=== PATIENT | female | born 1965 | race Caucasian/White ===

== ENCOUNTER → 2017-07-20 | Outpatient (CLI) | payer OTHER ==
--- NOTE | 2017-07-20 13:28 | Diagnostic Imaging Report ---
Bilateral screening mammogram 2D views with tomosynthesis The current study was also evaluated with a Computer Aided Detection (CAD) system. Indication: Screening. No current complaints stated on the questionnaire. COMPARISON: 07/01/16. Findings: The breasts are composed of dense parenchyma which may decrease mammographic sensitivity. In the lateral aspect of the right breast, a cyst is again seen, slightly smaller compared to prior exams. Occasional punctate calcifications are noted. Allowing for technique and positional differences, no suspicious change is seen. IMPRESSION: Dense breasts with no definite change. ACR BI-RADS Category 2: Benign findings. Result letter will be mailed to the patient. Note: At least 10% of breast cancer is not imaged by mammography. Dictated by: Dictated on workstation # [id number]
== END ==
LOC: RAD 07:27
PROVIDERS: ATTEND Nurse Practitioner
DX: Z12.31 Encounter for screening mammogram for malignant neoplasm of breast (principal)
CPT/HCPCS: 77067

== ENCOUNTER → 2018-07-21 | Outpatient (CLI) | payer OTHER ==
--- NOTE | 2018-07-21 09:08 | Diagnostic Imaging Report ---
INDICATION: Routine screening. Comparison is made with prior mammogram from 07/20/2017 and 07/01/2016. 2-D and 3-D bilateral screening mammography was performed with a Computer Aided Detection (CAD) system. FINDINGS: Both breasts are heterogeneously dense, limiting the sensitivity of mammography. Previously noted cyst in the upper outer right breast appears to be stable to perhaps slightly smaller on today's study. No new mass or malignant appearing microcalcifications are seen. Axillae are unremarkable. IMPRESSION: No mammographic features suspicious for malignancy are identified. ACR BI-RADS Category 2: Benign findings. Result letter will be mailed to the patient. Note: At least 10% of breast cancer is not imaged by mammography. Dictated by: Dictated on workstation # [id number]
== END ==
LOC: RAD 07:41
PROVIDERS: ATTEND Nurse Practitioner
DX: Z12.31 Encounter for screening mammogram for malignant neoplasm of breast (principal)
CPT/HCPCS: 77067

== ENCOUNTER → 2019-08-24 | Outpatient (CLI) | payer OTHER ==
[2019-08-24 07:56] LABS: BILIRUBIN,TOTAL 0.4 MG/DL (0.1-1.0); CALCIUM 9.2 MG/DL (8.5-10.1); CREATININE SERUM 1.08 MG/DL (0.60-1.30); POTASSIUM 3.8 MMOL/L (3.6-5.0); TOTAL PROTEIN 7.1 GM/DL (6.4-8.2)
--- NOTE | 2019-08-24 09:14 | Diagnostic Imaging Report ---
INDICATION: Routine screening. COMPARISON: 07/21/2018 and 07/20/2017. TECHNIQUE: 2D and 3D bilateral screening mammography was performed with CAD. FINDINGS: Both breasts remain heterogeneously dense, limiting the sensitivity of mammography. The overall parenchymal pattern appears to be stable. A circumscribed lesion in the upper outer right breast at mid depth appears stable. No new mass or malignant appearing microcalcifications are seen. The axillae are unremarkable. IMPRESSION: No mammographic features suspicious for malignancy are identified. ACR BI-RADS Category 2: Benign findings. Result letter will be mailed to the patient. Note: At least 10% of breast cancer is not imaged by mammography. Dictated by: Dictated on workstation # [id number]
== END ==
LOC: RAD 07:29
PROVIDERS: ATTEND Obstetrics & Gynecology
DX: Z12.31 Encounter for screening mammogram for malignant neoplasm of breast (principal); Z86.39 Personal history of other endocrine, nutritional and metabolic disease
CPT/HCPCS: 36415; 77067; 80053; 80061

== ENCOUNTER → 2020-08-28 | Outpatient (CLI) | payer OTHER ==
[2020-08-28 07:48] LABS: HEMOGLOBIN 14.5 g/dL (11.5-16.0); MEAN PLATELET VOLUME 9.6 fL (9.0-12.2); WHITE BLOOD COUNT 7.1 10^3/uL (4.3-11.0)
[2020-08-28 08:11] LABS: ALANINE AMINOTRANSFERASE 9 U/L (0-55); ALBUMIN 4.1 GM/DL (3.2-4.5); ALKALINE PHOSPHATASE 78 U/L (40-136); BILIRUBIN,TOTAL 0.4 MG/DL (0.1-1.0); BUN/CREATININE RATIO 12; CARBON DIOXIDE 23 MMOL/L (21-32); CHLORIDE 106 MMOL/L (98-107); CHOLESTEROL 213 MG/DL (< 200); CREATININE SERUM 0.95 MG/DL (0.60-1.30); GFR ESTIMATED > 60; GLUCOSE 91 MG/DL (70-105); HDL CHOLESTEROL 69 MG/DL (40-60); POTASSIUM 3.5 MMOL/L (3.6-5.0); SODIUM 141 MMOL/L (135-145); TOTAL PROTEIN 7.4 GM/DL (6.4-8.2); TRIGLYCERIDES 281 MG/DL (<150); VLDL CHOLESTEROL 56 MG/DL (5-40)
--- NOTE | 2020-08-28 13:48 | Diagnostic Imaging Report ---
INDICATION: Routine screening. Comparison is made with prior mammogram from 08/24/2019 and 07/21/2018. 2-D and 3-D bilateral screening mammography was performed with CAD. Both breasts remain heterogenously dense, limiting the sensitivity of mammography. Circumscribed densities previously seen upper outer right breast appear stable. No spiculated mass or malignant appearing microcalcifications are seen. Axillae are unremarkable. IMPRESSION: BI-RADS Category 2 No mammographic features suspicious for malignancy are identified. ACR BI-RADS Category 2: Benign findings. Result letter will be mailed to the patient. Note: At least 10% of breast cancer is not imaged by mammography. Dictated by: Dictated on workstation # [id number]
== END ==
LOC: RAD 07:30
PROVIDERS: ATTEND Obstetrics & Gynecology
DX: Z00.00 Encounter for general adult medical examination without abnormal findings (principal); Z12.31 Encounter for screening mammogram for malignant neoplasm of breast
CPT/HCPCS: 36415; 77063; 77067; 80053; 80061; 83036; 84443; 85027

== ENCOUNTER → 2021-10-24 | Outpatient (CLI) | payer OTHER ==
[2021-10-24 07:52] LABS: HEMATOCRIT 45 % (35-52); HEMOGLOBIN 14.7 g/dL (11.5-16.0); MEAN CORPUSCULAR HEMOGLOBIN 30 pg (25-34); MEAN CORPUSCULAR HGB CONC 33 g/dL (32-36); MEAN CORPUSCULAR VOLUME 92 fL (80-99); MEAN PLATELET VOLUME 9.3 fL (9.0-12.2); PLATELET COUNT 276 10^3/uL (130-400); WHITE BLOOD COUNT 6.1 10^3/uL (4.3-11.0)
[2021-10-24 08:13] LABS: BILIRUBIN,TOTAL 0.4 MG/DL (0.1-1.0); CREATININE SERUM 0.88 MG/DL (0.60-1.30); POTASSIUM 3.8 MMOL/L (3.6-5.0); TOTAL PROTEIN 7.3 GM/DL (6.4-8.2)
--- NOTE | 2021-10-24 10:17 | Diagnostic Imaging Report ---
INDICATION: Routine screening. COMPARISON: 08/28/2020 and 08/24/2019. TECHNIQUE: 2D and 3D bilateral screening mammography was performed with CAD. FINDINGS: Both breasts are heterogeneously dense, limiting the sensitivity of mammography. There are circumscribed densities in the upper outer right breast, suggestive of cysts. No spiculated mass or malignant-appearing microcalcifications are seen. The axillae are unremarkable. IMPRESSION: No mammographic features suspicious for malignancy are identified. ACR BI-RADS Category 2: Benign findings. Result letter will be mailed to the patient. Note: At least 10% of breast cancer is not imaged by mammography. Dictated by: Dictated on workstation # [id number]
== END ==
LOC: RAD 07:41
PROVIDERS: ATTEND Obstetrics & Gynecology
DX: Z12.31 Encounter for screening mammogram for malignant neoplasm of breast (principal)
CPT/HCPCS: 36415; 77063; 77067; 80053; 80061; 85027

== ENCOUNTER → 2022-11-03 | Outpatient (CLI) | payer BC ==
--- NOTE | 2022-11-03 10:21 | Diagnostic Imaging Report ---
EXAMINATION: 3D bilateral screening mammogram with CAD. INDICATION: Screening. COMPARISON: This study was compared to the prior exams of 10/24/2021, 08/28/2020, and 08/24/2019. PERSONAL HISTORY: At this time, there are no current complaints. FINDINGS: The fibroglandular tissue in both breasts is heterogeneously dense. This does limit the sensitivity of this exam. When compared to the prior study, there does not appear to have been any significant change. The well-circumscribed small round asymmetries in the upper outer aspect of the right breast seen previously are again visualized and no different. I suspect that these are benign cysts or solid masses. There is no primary or secondary sign of malignancy noted. IMPRESSION: There is no evidence for malignancy. ACR BI-RADS Category 1: Negative. Result letter will be mailed to the patient. Note: At least 10% of breast cancer is not imaged by mammography. Dictated by: Dictated on workstation # [id number]
== END ==
LOC: RAD 07:30
PROVIDERS: ATTEND Nurse Practitioner Women's Health
DX: Z12.31 Encounter for screening mammogram for malignant neoplasm of breast (principal)
CPT/HCPCS: 77063; 77067

== ENCOUNTER 2023-04-15 19:23 | Emergency (ER) | payer BC ==
[~2023-04-15] VITALS: Ht 160 cm; Wt 57.2 kg
[2023-04-15] MEDS ORDERED: NITROGLYCERIN 2% OINT 1 GM UNIT DOSE PACKET TOP STA (19:47)
[2023-04-15 19:48] LABS: BASOPHILS # (AUTO) 0.1 10^3/uL (0.0-0.1); BASOPHILS % (AUTO) 1 % (0-10); EOSINOPHILS # (AUTO) 0.1 10^3/uL (0.0-0.3); EOSINOPHILS % (AUTO) 3 % (0-10); HEMATOCRIT 44 % (35-52); HEMOGLOBIN 14.7 g/dL (11.5-16.0); LYMPHOCYTES # (AUTO) 1.9 10^3/uL (1.0-4.0); LYMPHOCYTES % (AUTO) 34 % (12-44); MEAN CORPUSCULAR HEMOGLOBIN 31 pg (25-34); MEAN CORPUSCULAR HGB CONC 33 g/dL (32-36); MEAN CORPUSCULAR VOLUME 93 fL (80-99); MEAN PLATELET VOLUME 9.2 fL (9.0-12.2); MONOCYTES # (AUTO) 0.6 10^3/uL (0.0-1.0); MONOCYTES % (AUTO) 11 % (0-12); NEUTROPHILS # (AUTO) 2.8 10^3/uL (1.8-7.8); NEUTROPHILS % (AUTO) 51 % (42-75); PLATELET COUNT 314 10^3/uL (130-400); WHITE BLOOD COUNT 5.5 10^3/uL (4.3-11.0)
[2023-04-15] MEDS ORDERED: ASPIRIN 81 MG CHEWABLE TABLET PO ONE (20:00)
[2023-04-15 20:06] LABS: INR 0.9 (0.8-1.4); PROTHROMBIN TIME PATIENT 12.8 SEC (12.2-14.7)
[2023-04-15 20:07] LABS: ALANINE AMINOTRANSFERASE 20 U/L (0-55); ALBUMIN 4.4 GM/DL (3.2-4.5); ALKALINE PHOSPHATASE 73 U/L (40-136); AMYLASE 75 U/L (25-125); BILIRUBIN,TOTAL 0.5 MG/DL (0.1-1.0); BUN/CREATININE RATIO 14; CALCIUM 9.6 MG/DL (8.5-10.1); CARBON DIOXIDE 24 MMOL/L (21-32); CHLORIDE 101 MMOL/L (98-107); CREATINE KINASE 55 U/L (29-168); CREATININE SERUM 0.96 MG/DL (0.60-1.30); GFR ESTIMATED 70; GLUCOSE 90 MG/DL (70-105); LIPASE 9 U/L (8-78); MAGNESIUM 2.7 MG/DL (1.6-2.4); PARTIAL THROMBOPLASTIN TIME 27 SEC (24-35); POTASSIUM 3.8 MMOL/L (3.6-5.0); SODIUM 137 MMOL/L (135-145); TOTAL PROTEIN 7.8 GM/DL (6.4-8.2)
--- NOTE | 2023-04-15 20:07 | ED General ---
General Chief Complaint: Abdominal/GI Problems Stated Complaint: ABD PAIN, INDIGESTION Nursing Triage Note: TO ED VIA POV AND AMBULATORY TO ROOM 5 WITH C/O MID ABD PAIN. STATES FEELS "LIKE A BAND AROUND ME". LAST THURSDAY PT STATES SHE FELT LIKE SHE HAD BLOATING AND INDIGESTION. RECENTLY COMPLETED ANTIVIRALS FOR SHINGLES. DENIES N/V. LAST BM THIS AM BUT HAD PREVIOUSLY FELT CONSTIPATED. DENIES FEVER, SOA, COUGH. Source of Information: Patient History of Present Illness Date Seen by Provider: Apr 15, 2023 Time Seen by Provider: 19:40 Initial Comments PT ARRIVES VIA POV FROM HOME STATES SHE HAS BEEN HAVING WHAT SHE CALLS "INDIGESTION"--STATES "IT'S REALLY A PAIN--IT FEELS LIKE MY BRA IS TOO TIGHT"--PAIN BEGAN LAST THURSDAY RATES PAIN 8/10 NOW PAIN IS IN CENTER OF CHEST AND EPIGASTRIC AREA NO RADIATION OF PAIN NOTHING WORSENS OR IMPROVES PAIN NO NAUSEA/VOMITING. HAD NORMAL BM LAST PM--SHE HAS BEEN CONSTIPATED NO COUGH NO SHORTNESS OF BREATH NO FEVER/SWEATS/CHILLS NO SWELLING IN LEGS/FEET OR PAIN IN CALVES NO DIZZINESS OR SYNCOPE NO PALPITATIONS PT WAS DX WITH SHINGLES ABOUT 2 WEEKS AGO--LEFT ABDOMEN AND BACK--SHE WAS SEEN AT AN URGENT CARE IN [place] ABOUT 2 WEEKS AGO. SHE HAS COMPLETED ANTIVIRAL THERAPY THE PAIN SHE IS HAVING NOW IS IN A DIFFERENT AREA THAN THE AREA OF SHINGLES SHE TOOK 1/2 OF A HYDROCODONE AT 1400 TODAY ( PRESCRIBED FOR SHINGLES) --NO RELIEF OF THIS PAIN TODAY NO HISTORY OF SIMILAR NO RECENT ILLNESS PT DENIES ANY MEDICAL PROBLEMS, BUT SHE DOES NOT NORMALLY GO TO A DR AND DOES NOT HAVE A DR. SHE DOES TAKE CONTINUOUS OCP'S, AND DOES NOT HAVE PERIODS DUE TO THAT. PT HAS NEVER HAD SURGERY NO SMOKING, ALCOHOL OR DRUG USE PCP: NONE Allergies and Home Medications Allergies Coded Allergies: Penicillins (Verified Allergy, Unknown, 04/15/23) Sulfa (Sulfonamide Antibiotics) (Verified Allergy, Unknown, 04/15/23) Patient Home Medication List Home Medication List Reviewed: Yes Dicyclomine HCl (Dicyclomine HCl) 20 Mg Tablet, 20 MG PO Q6H Prescribed by: HAYDEE MOHR on 04/15/23 208 Pantoprazole Sodium (Protonix) 40 Mg Tablet.dr, 40 MG PO DAILY Prescribed by: HAYDEE MOHR on 04/15/232150 Review of Systems Review of Systems Constitutional: no symptoms reported EENTM: no symptoms reported Respiratory: no symptoms reported Cardiovascular: see HPI Gastrointestinal: see HPI Genitourinary: no symptoms reported Musculoskeletal: see HPI Skin: see HPI Psychiatric/Neurological: No Symptoms Reported Hematologic/Lymphatic: No Symptoms Reported Immunological/Allergic: no symptoms reported Past Ulecxnv-Ugxlqr-Rtawsy Hx Patient Social History Tobacco Use?: No Substance use?: No Alcohol Use?: No Immunizations Up To Date First/Initial COVID19 Vaccinat: 1 DOSE COVID19 Vaccine Deputy K 9: J&J Past Medical History Surgeries: No Respiratory: No Cardiac: No Neurological: No Reproductive Disorders: No Genitourinary: No Gastrointestinal: No Musculoskeletal: No Endocrine: No HEENT: No Cancer: No Psychosocial: No Integumentary: Yes (SHINGLES) Blood Disorders: No Physical Exam Vital Signs Vital Signs - First Documented 04/15/23 19:33 Pulse 118 Resp 16 B/P (MAP) 149/115 (126) Pulse Ox 97 O2 Delivery Room Air Capillary Refill : Less Than 3 Seconds Height, Weight, BMI Height: '" Weight: lbs. oz. kg; 22.00 BMI Method: General Appearance: No Apparent Distress, WD/WN, Anxious HEENT: PERRL/EOMI Neck: Full Range of Motion, Normal Inspection, Non Tender, Supple; No Carotid Bruit, No JVD Respiratory: Chest Non Tender, Normal Breath Sounds, No Accessory Muscle Use, No Respiratory Distress Cardiovascular: No Edema, No JVD, No Murmur, Normal Peripheral Pulses, Tachycardia Gastrointestinal: Normal Bowel Sounds, No Organomegaly, Non Tender, Soft Back: Normal Inspection Extremity: Normal Capillary Refill, Normal Inspection, Normal Range of Motion, Non Tender, No Calf Tenderness, No Pedal Edema Neurologic/Psychiatric: Alert, Oriented x3, No Motor/Sensory Deficits, 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 Skin: Normal Color, Warm/Dry, Rash (SHINGLES RASH TO LEFT MID ABDOMEN AND BACK--NO VESICLES OR SIGNS OF SECONDARY CELLULITIS) Progress/Results/Core Measures Suspected Sepsis SIRS Temperature: Pulse: 118 Respiratory Rate: 16 Laboratory Tests 04/15/23 19:38: White Blood Count 5.5 Blood Pressure 149 /115 Mean: 126 Laboratory Tests 04/15/23 19:38: Creatinine 0.96, INR Comment 0.9, Platelet Count 314, Total Bilirubin 0.5 Results/Orders Lab Results Laboratory Tests Test 04/15/23 19:38 04/15/23 21:00 Range/Units White Blood Count 5.5 4.3-11.0 10^3/uL Red Blood Count 4.77 3.80-5.11 10^6/uL Hemoglobin 14.7 11.5-16.0 g/dL Hematocrit 44 35-52 % Mean Corpuscular Volume 93 80-99 fL Mean Corpuscular Hemoglobin 31 25-34 pg Mean Corpuscular Hemoglobin Concent 33 32-36 g/dL Red Cell Distribution Width 12.9 10.0-14.5 % Platelet Count 314 130-400 10^3/uL Mean Platelet Volume 9.2 9.0-12.2 fL Immature Granulocyte % (Auto) 0 % Neutrophils (%) (Auto) 51 42-75 % Lymphocytes (%) (Auto) 34 12-44 % Monocytes (%) (Auto) 11 0-12 % Eosinophils (%) (Auto) 3 0-10 % Basophils (%) (Auto) 1 0-10 % Neutrophils # (Auto) 2.8 1.8-7.8 10^3/uL Lymphocytes # (Auto) 1.9 1.0-4.0 10^3/uL Monocytes # (Auto) 0.6 0.0-1.0 10^3/uL Eosinophils # (Auto) 0.1 0.0-0.3 10^3/uL Basophils # (Auto) 0.1 0.0-0.1 10^3/uL Immature Granulocyte # (Auto) 0.0 0.0-0.1 10^3/uL Erythrocyte Sedimentation Rate 17 0-30 MM/HR Prothrombin Time 12.8 12.2-14.7 SEC INR Comment 0.9 0.8-1.4 Activated Partial Thromboplast Time 27 24-35 SEC D-Dimer < 0.27 0.00-0.49 UG/ML Sodium Level 137 135-145 MMOL/L Potassium Level 3.8 3.6-5.0 MMOL/L Chloride Level 101 98-107 MMOL/L Carbon Dioxide Level 24 21-32 MMOL/L Anion Gap 12 5-14 MMOL/L Blood Urea Nitrogen 13 7-18 MG/DL Creatinine 0.96 0.60-1.30 MG/DL Estimat Glomerular Filtration Rate 70 BUN/Creatinine Ratio 14 Glucose Level 90 70-105 MG/DL Calcium Level 9.6 8.5-10.1 MG/DL Corrected Calcium 9.3 8.5-10.1 MG/DL Magnesium Level 2.7 H 1.6-2.4 MG/DL Total Bilirubin 0.5 0.1-1.0 MG/DL Aspartate Amino Transf (AST/SGOT) 23 5-34 U/L Alanine Aminotransferase (ALT/SGPT) 20 0-55 U/L Alkaline Phosphatase 73 40-136 U/L Total Creatine Kinase 55 29-168 U/L Creatine Kinase MB 1.4 <6.6 NG/ML Myoglobin 40.4 10.0-92.0 NG/ML Troponin I < 0.028 <0.028 NG/ML C-Reactive Protein High Sensitivity 0.40 0.00-0.50 MG/DL B-Type Natriuretic Peptide 43.2 <100.0 PG/ML Total Protein 7.8 6.4-8.2 GM/DL Albumin 4.4 3.2-4.5 GM/DL Amylase Level 75 25-125 U/L Lipase 9 8-78 U/L TSH [place] Testing 4.24 0.35-4.94 UIU/ML Serum Test, Qualitative NEGATIVE NEGATIVE Urine Color YELLOW Urine Clarity CLEAR Urine pH 6.0 5-9 Urine Specific [place] 1.010 L 1.016-1.022 Urine Protein NEGATIVE NEGATIVE Urine Glucose (UA) NEGATIVE NEGATIVE Urine Ketones TRACE H NEGATIVE Urine Nitrite NEGATIVE NEGATIVE Urine Bilirubin NEGATIVE NEGATIVE Urine Urobilinogen 0.2 < = 1.0 MG/DL Urine Leukocyte Esterase NEGATIVE NEGATIVE Urine RBC (Auto) TRACE H NEGATIVE Urine RBC 2-5 H /HPF Urine WBC RARE /HPF Urine Squamous Epithelial Cells 2-5 /HPF Urine Crystals NONE /LPF Urine Bacteria FEW H /HPF Urine Casts NONE /LPF Urine Mucus NEGATIVE /LPF Urine Culture Indicated YES My Orders Orders - HAYDEE MOHR DO Ed Iv/Invasive Line Start (04/15/23 19:38) Ekg Tracing (04/15/23 19:38) Monitor-Rhythm Ecg Trace Only (04/15/23 19:38) Amylase (04/15/23 19:38) Bnp [place] (04/15/23 19:38) Cbc With Automated Diff (04/15/23 19:38) Comprehensive Metabolic Panel (04/15/23 19:38) Creatine Kinase (04/15/23 19:38) Creatine Kinase Mb (04/15/23 19:38) Hs C Reactive Protein (04/15/23 19:38) Fibrin Degradation Products (04/15/23 19:38) Lipase (04/15/23 19:38) Magnesium (04/15/23 19:38) Protime With Inr (04/15/23 19:38) Partial Thromboplastin Time (04/15/23 19:38) Ua Culture If Indicated (04/15/23 19:38) Erythrocyte Sedimentation Rate (04/15/23 19:38) Myoglobin Serum (04/15/23 19:38) Troponin I [place] (04/15/23 19:38) Hcg,Qualitative Serum (04/15/23 19:47) Thyroid Analyzer (04/15/23 19:47) Chest 1 View, Ap/Pa Only (04/15/23 19:47) Nitroglycerin Ointment (Nitroglycerin (04/15/23 19:47) Aspirin Chewable Tablet (Aspirin Chewabl (04/15/23 20:00) Ct Olga Chest/Noang Abd-Pelv W (04/15/23 20:18) Iohexol Injection (Omnipaque 350 Mg/Ml 1 (04/15/23 20:45) Ns (Ivpb) 100 Ml (Sodium Chloride 0.9% 1 (04/15/23 20:45) Urine Culture (04/15/23 21:00) Pantoprazole Tablet (Pantoprazole Tablet (04/15/23 22:00) Medications Given in ED Current Medications Medications Dose Ordered Sig/Lay Route Start Time Stop Time Status Last Admin Dose Admin Aspirin 324 mg ONCE ONCE PO 04/15/23 20:00 04/15/23 20:01 DC 04/15/23 19:58 324 MG Iohexol 100 ml ONCE ONCE IV 04/15/23 20:45 04/15/23 20:46 DC 04/15/23 20:53 75 ML Pantoprazole Sodium 40 mg ONCE ONCE PO 04/15/23 22:00 04/15/23 22:02 DC 04/15/23 22:03 40 MG Sodium Chloride 100 ml ONCE ONCE IV 04/15/23 20:45 04/15/23 20:46 DC 04/15/23 20:54 67 ML Vital Signs/I&O 04/15/23 04/15/23 19:33 22:06 Pulse 118 103 Resp 16 20 B/P (MAP) 149/115 (126) 147/87 Pulse Ox 97 97 O2 Delivery Room Air Room Air Capillary Refill : Less Than 3 Seconds Blood Pressure Mean: 126 Progress Note : Progress Note VITALS ON ARRIVAL: TEMP , HR 118, RR 16, BP 149/115, O2 SAT 97% ON ROOM AIR GIVEN: -ASPIRIN -NITROPASTE 1" -PROTONIX LABS: -CBC NORMAL -CMP NORMAL -AMYLASE/LIPASE NORMAL -MG 2.7 -TROPONIN NEGATIVE -BNP NORMAL -PT/PTT/INR NORMAL -D-DIMER NEGATIVE -TSH 4.24 -HCG NEGATIVE -UA TRACE RBC, FEW BACTERIA EKG WITH SINUS TACH AND NON-SPECIFIC CHANGES CXR UNREMARKABLE CT CHEST ANGIOGRAM/ABDOMEN-PELVIS DOES NOT SHOW ANY ACUTE PROCESS UNEVENTFUL ER STAY VITALS STABLE, AFEBRILE DISCUSSED TEST RESULTS, ANTICIPATED COURSE, SYMPTOMATIC TREATMENT, MEDICATIONS, NEED FOR FOLLOW UP --WILL REFER TO SURGERY FOR FURTHER EVALUATION, AND RETURN PRECAUTIONS DISCUSSED POSSIBLE NEED FOR FURTHER OUTPATIENT TESTING IF HER SYMPTOMS PERSIST, INCLUDING ULTRASOUND, HIDA SCAN AND ENDOSCOPY ALSO SENT PT HOME WITH LIST OF LOCAL PROVIDERS ECG Initial ECG Impression Date: Apr 15, 2023 Initial ECG Impression Time: 19:45 Initial ECG Rate: 107 Initial ECG Rhythm: S.Tach Initial ECG Intervals MT 123 QRS 92 QT/QTC 316/379 Initial ECG Impression: Nonspecific Changes Initial ECG Comparisson: No Previous ECG Available Comment INTERPRETED BY ME Diagnostic Imaging Comments CXR--PER RADIOLOGIST REPORT AT 2050 FINDINGS: The lungs appear clear without focal airspace opacities or consolidation. There are no findings of an effusion. There is no evidence of a pneumothorax. The lungs are mildly hyperinflated. Heart size and mediastinal contours appear appropriate. Pulmonary vascularity appears within normal limits. There is no acute or suspicious osseous abnormality demonstrated. IMPRESSION: No radiographic evidence of an acute cardiopulmonary process. Mild hyperinflation. CT CHEST ANGIOGRAM / ABDOMEN-PELVIS--PER RADIOLOGIST REPORT AT 2136 FINDINGS: There is no CT angiographic finding of pulmonary embolism or right ventricular strain. The thoracic aorta demonstrates no dissection of the aneurysm or intramural hematoma. There is no significant thoracic aortic atherosclerotic plaquing. Heart size is normal. There is no pericardial collection. The lungs demonstrate no finding of pneumonia or edema. There is no effusion or pneumothorax. There is a 6 mm right lower lobe pulmonary nodule. There are no abnormally enlarged thoracic lymph nodes. The thyroid appears mildly heterogeneous. The liver demonstrates no evidence of a focal intrahepatic abnormality. The gallbladder is nondistended without radiodense stones or finding of biliary dilatation. Hepatic and portal veins are patent. The pancreas is normal. Spleen is unremarkable. There is no adrenal mass. The kidneys enhance normally and are nonobstructed. The stomach is nondistended. There is no small or large bowel dilation to suggest obstruction. There is, however, a large degree of stool present throughout the colon without evidence of colonic thickening or pericolonic fat stranding. The appendix cannot be identified but there are no focal inflammatory changes in the right lower quadrant. The bladder is nondistended. The uterus and ovaries are normal. There is no pelvic free fluid. There is no finding of abdominal or pelvic adenopathy. The aorta is normal in caliber. There is no acute or suspicious osseous abnormality. 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 IMPRESSION: 1. No CT angiographic evidence of pulmonary embolism or right ventricular strain. 2. Normal aorta. 3. No pneumonia or edema. 4. 6 mm right lower lobe pulmonary nodule. Consider a six month follow-up as there are no comparison examinations to document stability. 5. No finding of an acute inflammatory process in the abdomen or pelvis. 6. Large degree of stool throughout the colon suggesting constipation. There is no bowel thickening or evidence of dilation to suggest bowel obstruction. 7. No free air, free fluid or abscess. Reviewed: Reviewed by Me Departure Impression Primary Impression: Epigastric abdominal pain Additional Impressions: Constipation HTN (hypertension) Disposition: 01 HOME, SELF-CARE Condition: Stable Departure-Patient Inst. Decision time for Depature: 21:49 Referrals: SAMUEL CARIAS MD NO,LOCAL PHYSICIAN (PCP) Primary Care Physician Patient Instructions: Abdominal pain, Dyspepsia (DC), Ulcer and Gastritis Diet, Constipation, Adult (DC) Add. Discharge Instructions: HOME, REST BLAND DIET TAKE MIRALAX DAILY FOLLOW UP WITH DR. CARIAS OR SURGEON OF CHOICE FOR FURTHER CARE--CALL IN THE MORNING TO MAKE AN APPOINTMENT ESTABLISH WITH FAMILY DR OF CHOICE FOR ONGOING MEDICAL CARE RETURN TO ER IF SYMPTOMS WORSEN All discharge instructions reviewed with patient and/or family. Voiced understanding. Scripts Dicyclomine HCl (Dicyclomine HCl) 20 Mg Tablet 20 MG PO Q6H for Abdominal Pain, #20 TAB Prov: HAYDEE MOHR DO 04/15/23 Pantoprazole Sodium (Protonix) 40 Mg Tablet.dr 40 MG PO DAILY, #15 TAB Prov: HAYDEE MOHR DO 04/15/23 Work/School Note: Local Medical Staff Listing HAYDEE MOHR DO Apr 15, 2023 20:07
[2023-04-15 20:09] LABS: ERYTHROCYTE SEDIMENTATION RATE 17 MM/HR (0-30)
[2023-04-15 20:15] LABS: CREATINE KINASE MB 1.4 NG/ML (<6.6)
[2023-04-15 20:16] LABS: FIBRIN DEGRADATION PRODUCTS < 0.27 UG/ML (0.00-0.49)
[2023-04-15] MEDS ORDERED: IOHEXOL 350 MG/ML 100 ML (OMNIPAQUE 350) VIAL IV ONE (20:45)
[2023-04-15] MEDS ORDERED: NS 100 ML (IVPB) BAG IV ONE (20:45)
--- NOTE | 2023-04-15 20:49 | Diagnostic Imaging Report ---
INDICATION: Pain. COMPARISON: None available. FINDINGS: The lungs appear clear without focal airspace opacities or consolidation. There are no findings of an effusion. There is no evidence of a pneumothorax. The lungs are mildly hyperinflated. Heart size and mediastinal contours appear appropriate. Pulmonary vascularity appears within normal limits. There is no acute or suspicious osseous abnormality demonstrated. IMPRESSION: No radiographic evidence of an acute cardiopulmonary process. Mild hyperinflation. Dictated by: Dictated on workstation # [id number]
[2023-04-15 21:12] LABS: CLARITY,URINE CLEAR; COLOR,URINE YELLOW
[2023-04-15 21:13] LABS: BACTERIA,URINE FEW /HPF; BILIRUBIN,URINE NEGATIVE (NEGATIVE); GLUCOSE, URINE (UA) NEGATIVE (NEGATIVE); KETONES,URINE TRACE (NEGATIVE); LEUKOCYTE ESTERASE ,URINE NEGATIVE (NEGATIVE); NITRITE,URINE NEGATIVE (NEGATIVE); PROTEIN,URINE NEGATIVE (NEGATIVE); WBC,URINE RARE /HPF
--- NOTE | 2023-04-15 21:30 | Diagnostic Imaging Report ---
INDICATION: Chest pain and epigastric pain. TECHNIQUE: CTA chest, abdomen and pelvis. Thin axial sections through the chest, abdomen and pelvis are obtained following intravenous contrast bolus. Multiplanar MIP images were reconstructed and reviewed. All CT scans use one or more of the following dose optimizing techniques: automated exposure control, MA and/or KvP adjustment based on patient size and exam type or iterative reconstruction. FINDINGS: There is no CT angiographic finding of pulmonary embolism or right ventricular strain. The thoracic aorta demonstrates no dissection of the aneurysm or intramural hematoma. There is no significant thoracic aortic atherosclerotic plaquing. Heart size is normal. There is no pericardial collection. The lungs demonstrate no finding of pneumonia or edema. There is no effusion or pneumothorax. There is a 6 mm right lower lobe pulmonary nodule. There are no abnormally enlarged thoracic lymph nodes. The thyroid appears mildly heterogeneous. The liver demonstrates no evidence of a focal intrahepatic abnormality. The gallbladder is nondistended without radiodense stones or finding of biliary dilatation. Hepatic and portal veins are patent. The pancreas is normal. Spleen is unremarkable. There is no adrenal mass. The kidneys enhance normally and are nonobstructed. The stomach is nondistended. There is no small or large bowel dilation to suggest obstruction. There is, however, a large degree of stool present throughout the colon without evidence of colonic thickening or pericolonic fat stranding. The appendix cannot be identified but there are no focal inflammatory changes in the right lower quadrant. The bladder is nondistended. The uterus and ovaries are normal. There is no pelvic free fluid. There is no finding of abdominal or pelvic adenopathy. The aorta is normal in caliber. There is no acute or suspicious osseous abnormality. 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 IMPRESSION: 1. No CT angiographic evidence of pulmonary embolism or right ventricular strain. 2. Normal aorta. 3. No pneumonia or edema. 4. 6 mm right lower lobe pulmonary nodule. Consider a six month follow-up as there are no comparison examinations to document stability. 5. No finding of an acute inflammatory process in the abdomen or pelvis. 6. Large degree of stool throughout the colon suggesting constipation. There is no bowel thickening or evidence of dilation to suggest bowel obstruction. 7. No free air, free fluid or abscess. Dictated by: Dictated on workstation # [id number]
[2023-04-15] MEDS ORDERED: PANT40TA2 PO (21:51)
[2023-04-15] MEDS ORDERED: DICY20TA PO (21:51)
[2023-04-15] MEDS ORDERED: PANTOPRAZOLE 40 MG TABLET PO ONE (22:00)
[2023-04-15 22:06] VITALS: BP 147/87
== END 2023-04-15 22:06 | disposition home or self-care (01) ==
LOC: EDUNIT# 19:23 → ER 19:26
DX: R10.13 Epigastric pain (principal); K59.00 Constipation, unspecified; I10 Essential (primary) hypertension; Z28.311 Partially vaccinated for COVID-19
CPT/HCPCS: 36415; 71045; 71275; 74177; 80053; 81000; 82150; 82550; 82553; 83690; 83735; 83874; 83880; 84443; 84484; 84703; 85025; 85379; 85610; 85652; 85730; 86141; 87088; 93005; 93041